=== PATIENT | male | born 1975 | race Caucasian/White ===

== ENCOUNTER 2018-10-19 20:23 | Emergency (ER) | payer BC ==
[~2018-10-19] VITALS: Ht 177.8 cm; Wt 70.3 kg
--- OUTSIDE RECORDS SUMMARY | 2018-10-19 20:25 | XMS REPORT ---
Author Author [facility] Address Unknown Phone Unavailable Care Team Providers Care Interventional Sale Consultant Name Role Phone Unavailable Unavailable Payers Payer Name Policy Type Policy Number Effective Date Expiration Date Problems This patient has no known problems. Allergies, Adverse Reactions, Alerts Allergy Name Allergy Type Status Severity Reaction(s) Onset Date Inactive Date Treating Clinician Comments No Known Allergies DA Active U 2013-09-03 00:00:00 Medications This patient has no known medications. Results Test Description Test Time Test Comments Text Results Atomic Results Result Comments COMPREHENSIVE METABOLIC PANEL 2018-07-20 21:18:00 SODIUM (test code=NA) 139 mmol/L 136-145 POTASSIUM (test code=K) 3.6 mmol/L 3.5-5.1 CHLORIDE (test code=CL) 101.0 mmol/L 98-107 CARBON DIOXIDE (test code=CO2) 32.0 mmol/L 21-32 ANION GAP (test code=GAP) 9.6 10-20 GLUCOSE (test code=GLU) 146 mg/dL 74-106 BLOOD UREA NITROGEN (test code=BUN) 6 mg/dL 7-18 GLOMERULAR FILTRATION RATE (test code=GFR) > 60 mL/min >=60 Estimated GFR by using Modified MDRD formula.Chronic kidney disease is defined as either kidney damageor GFR <60 mL/min/1.73 m2 for >3 months. CREATININE (test code=CREAT) 1.00 mg/dL 0.7-1.3 BUN/CREATININE RATIO (test code=BUN/CREA) 6.0 10-20 TOTAL PROTEIN (test code=PROT) 7.6 gram/dL 6.4-8.2 ALBUMIN (test code=ALB) 4.4 g/dL 3.4-5.0 GLOBULIN (test code=GLOB) 3.2 gram/dL 2.7-4.2 ALBUMIN/GLOBULIN RATIO (test code=A/G) 1.4 0.75-1.50 CALCIUM (test code=CA) 9.0 mg/dL 8.5-10.1 BILIRUBIN TOTAL (test code=BILT) 0.70 mg/dL 0.0-1.0 SGOT/AST (test code=AST) 16 IUnit/L 15-37 SGPT/ALT (test code=ALT) 41 IUnit/L 12-78 ALKALINE PHOSPHATASE TOTAL (test code=ALKP) 74 IUnit/L 45-117 Note change in reference range due to change in reagent. [id number] 21:18:00* Test Item Value Reference Range Comments LIPASE (test code=LIP) 52 U/L 73.0-393.0 COMPREHENSIVE METABOLIC [id number] 21:03:00* Test Item Value Reference Range Comments SODIUM (test code=NA) 139 mmol/L 136-145 POTASSIUM (test code=K) 3.6 mmol/L 3.5-5.1 CHLORIDE (test code=CL) 101.0 mmol/L 98-107 CARBON DIOXIDE (test code=CO2) mmol/L 21-32 ANION GAP (test code=GAP) 10-20 GLUCOSE (test code=GLU) mg/dL 74-106 BLOOD UREA NITROGEN (test code=BUN) mg/dL 7-18 GLOMERULAR FILTRATION RATE (test code=GFR) mL/min >=60 CREATININE (test code=CREAT) mg/dL 0.7-1.3 BUN/CREATININE RATIO (test code=BUN/CREA) 10-20 TOTAL PROTEIN (test code=PROT) gram/dL 6.4-8.2 ALBUMIN (test code=ALB) g/dL 3.4-5.0 GLOBULIN (test code=GLOB) gram/dL 2.7-4.2 ALBUMIN/GLOBULIN RATIO (test code=A/G) 0.75-1.50 CALCIUM (test code=CA) mg/dL 8.5-10.1 BILIRUBIN TOTAL (test code=BILT) mg/dL 0.0-1.0 SGOT/AST (test code=AST) IUnit/L 15-37 SGPT/ALT (test code=ALT) IUnit/L 12-78 ALKALINE PHOSPHATASE TOTAL (test code=ALKP) IUnit/L 45-117 [id number] 21:03:00* Test Item Value Reference Range Comments LIPASE (test code=LIP) U/L 73.0-393.0 URINALYSIS [id number] 21:02:00* Test Item Value Reference Range Comments UA COLOR (test code=COLU) COLORLESS YELLOW UA APPEARANCE (test code=APPU) CLEAR CLEAR UA GLUCOSE DIPSTICK (test code=DGLUU) NEGATIVE mg/dL NEGATIVE UA BILIRUBIN DIPSTICK (test code=BILU) NEGATIVE mg/dL NEGATIVE UA KETONE DIPSTICK (test code=KETU) NEGATIVE mg/dL NEGATIVE UA SPECIFIC GRAVITY (test code=SGU) UNDER 1.001-1.035 UA BLOOD DIPSTICK (test code=GABRIEL) Negative mg/dL NEGATIVE UA PH DIPSTICK (test code=PARMJIT) 5.5 5.0-8.0 UA PROTEIN DIPSTICK (test code=PROU) NEGATIVE mg/dL NEGATIVE UA UROBILINIOGEN DIPSTICK (test code=URO) Normal mg/dL NEGATIVE UA NITRITE DIPSTICK (test code=KATHRIN) NEGATIVE NEGATIVE UA LEUKOCYTE ESTERASE W REFLEX (test code=LEUUR) NEGATIVE Albert/uL NEGATIVE UA WBC (test code=WBCU) 0-5 per HPF 0-5 UA RBC (test code=RBCU) 0-2 #/HPF 0-5 UA EPITHELIAL CELLS (test code=EPIU) Rare (0-1/hpf) per HPF FEW UA BACTERIA (test code=BACU) NONE SEEN #/HPF NONE Urine Source? Clean CatchCBC W/AUTO [id number] 20:51:00* Test Item Value Reference Range Comments WHITE BLOOD CELL (test code=WBC) K/mm3 4.5-12.5 RED BLOOD CELL (test code=RBC) mill/mm3 4.0-5.8 HEMOGLOBIN (test code=HGB) 15.7 gram/dL 13.0-17.5 HEMATOCRIT (test code=HCT) 47.8 % 42.0-52.0 MEAN CELL VOLUME (test code=MCV) fL 80-98 MEAN CELL HGB (test code=MCH) picogram 27.0-33.0 MEAN CELL HGB CONCETRATION (test code=MCHC) gram/dL 33.0-36.0 RED CELL DISTRIBUTION WIDTH (test code=RDW) % 11.6-16.2 RED CELL DISTRIBUTION WIDTH SD (test code=RDW-SD) fL 37.0-51.0 PLATELET COUNT (test code=PLT) K/mm3 150-450 MEAN PLATELET VOLUME (test code=MPV) fL 6.7-11.0 NEUTROPHIL % (test code=NT%) % 39.0-69.0 IMMATURE GRANULOCYTE % (test code=IG%) % 0.0-5.0 LYMPHOCYTE % (test code=LY%) % 25.0-55.0 MONOCYTE % (test code=MO%) % 0.0-10.0 EOSINOPHIL % (test code=EO%) % 0.0-5.0 BASOPHIL % (test code=BA%) % 0.0-1.0 NEUTROPHIL # (test code=NT#) K/mm3 1.8-7.7 LYMPHOCYTE # (test code=LY#) K/mm3 1.0-5.0 MONOCYTE # (test code=MO#) K/mm3 0-0.8 EOSINOPHIL # (test code=EO#) K/mm3 0.0-0.5 BASOPHIL # (test code=BA#) K/mm3 0.0-0.2 CBC W/AUTO [id number] 20:51:00* Test Item Value Reference Range Comments WHITE BLOOD CELL (test code=WBC) 8.0 K/mm3 4.5-12.5 RED BLOOD CELL (test code=RBC) 5.55 mill/mm3 4.0-5.8 HEMOGLOBIN (test code=HGB) 15.7 gram/dL 13.0-17.5 HEMATOCRIT (test code=HCT) 47.8 % 42.0-52.0 MEAN CELL VOLUME (test code=MCV) 86.1 fL 80-98 MEAN CELL HGB (test code=MCH) 28.3 picogram 27.0-33.0 MEAN CELL HGB CONCETRATION (test code=MCHC) 32.8 gram/dL 33.0-36.0 RED CELL DISTRIBUTION WIDTH (test code=RDW) 12.1 % 11.6-16.2 RED CELL DISTRIBUTION WIDTH SD (test code=RDW-SD) 38.2 fL 37.0-51.0 PLATELET COUNT (test code=PLT) 277 K/mm3 150-450 MEAN PLATELET VOLUME (test code=MPV) 10.4 fL 6.7-11.0 NEUTROPHIL % (test code=NT%) 60.6 % 39.0-69.0 IMMATURE GRANULOCYTE % (test code=IG%) 0.4 % 0.0-5.0 LYMPHOCYTE % (test code=LY%) 28.7 % 25.0-55.0 MONOCYTE % (test code=MO%) 7.9 % 0.0-10.0 EOSINOPHIL % (test code=EO%) 2.0 % 0.0-5.0 BASOPHIL % (test code=BA%) 0.4 % 0.0-1.0 NUCLEATED RBC % (test code=NRBC%) 0.0 % 0-0 NEUTROPHIL # (test code=NT#) 4.85 K/mm3 1.8-7.7 IMMATURE GRANULOCYTE # (test code=IG#) 0.03 x10 3/uL 0-0.03 LYMPHOCYTE # (test code=LY#) 2.29 K/mm3 1.0-5.0 MONOCYTE # (test code=MO#) 0.63 K/mm3 0-0.8 EOSINOPHIL # (test code=EO#) 0.16 K/mm3 0.0-0.5 BASOPHIL # (test code=BA#) 0.03 K/mm3 0.0-0.2 NUCLEATED RBC # (test code=NRBC#) 0.00 K/mm3 0.0-0.1 VENOUS BLOOD [id number] 20:45:00* Test Item Value Reference Range Comments VENOUS BLOOD GAS PH (test code=PHV) 7.39 7.30-7.40 VENOUS BLOOD GAS PCO2 (test code=PCO2V) 44.7 mm Hg 39.0-51.0 VENOUS BLOOD GAS PO2 (test code=PO2V) < 44.2 mm Hg 30.0-50.0 VBG HCO3 (test code=HCO3V) 26.1 mmol/L 17.0-30.0 VBG BASE EXCESS (test code=GUERO) 0.7 mmol/L -5.0-5.0 VENOUS BLOOD GAS O2 SAT. (test code=O2SATV) 41 % 94-98 VENOUS BLOOD GAS FIO2 (test code=FIO2V) 21.0 PT. HGB (test code=PHGBVBG) 16.9 gram/dL 13.0-17.5 VENOUS BLOOD GAS SITE (test code=SITEV) RR HEMATOCRIT (test code=HCT/VBG) 50 % 42-52 HGB O2 SAT (test code=HBOSAT) 40.7 % 94.00-98.00 CARBOXYHEMOGLOBIN (test code=HOHGBT) 1.1 %totalHg 0.5-1.5 METHEMOGLOBIN (test code=METHGB) 0.5 % 0.0-1.50 ARTERIAL BLOOD [id number] 20:44:00* Test Item Value Reference Range Comments ARTERIAL BLOOD GAS PH (test code=PHA) 7.39 7.35-7.45 ARTERIAL BLOOD GAS PCO2 (test code=PCO2A) 49.6 mm Hg 35-45 ARTERIAL BLOOD GAS PO2 (test code=PO2A) < 44.2 mmHg 80-100 Results called to and read back by nursesin 20:43 - 07/20/2018; by olive BICARBONATE TOTAL HCO3 (test code=HCO3) 29.4 mmol/L 23.0-27.0 BASE EXCESS (test code=SAKSHI) 3.2 mmol/L -3.0-5.0 ABG O2 SATURATION (test code=SATA) 37.2 % 90.0-98.0 ABG TYPE (test code=TYPEA) Arterial FIO2 (test code=FIO2A) 21.0 ABG SITE (test code=SITEA) Rt RADIAL ARTERY MODIFIED ALLENS (test code=MODALL) Yes CHECK PERFORMED HEMATOCRIT (test code=HCT/ABG) 50 % 42-52 TOTAL HGB (test code=THB) 16.9 gram/dL 13.0-17.5 HGB O2 SAT (test code=HBOSAT) 36.7 % 94.00-98.00 CARBOXYHEMOGLOBIN (test code=HOHGBT) 0.9 %totalHg 0.5-1.5 METHEMOGLOBIN (test code=METHGB) 0.4 % 0.0-1.50
--- OUTSIDE RECORDS SUMMARY | 2018-10-19 20:25 | XMS REPORT | Encounter Summary ---
Author Organization Unknown Address [address] [place] [address] Phone [phone] Care Team Providers Care Tub Chucker Name Role Phone Dr. Israel Liu 3 [phone] [facility] 111 [phone] Reason for Visit Mixed hyperlipidemia; Type II diabetes mellitus uncontrolled; Essential hypertension; cough Instructions 1. Essential hypertension lisinopril 5 mg tablet 2. Mixed hyperlipidemia atorvastatin 40 mg tablet lipid panel, serum CMP, serum or plasma 3. Type II diabetes mellitus uncontrolled type 2 diabetes: care instructions Farxiga 5 mg tablet metformin 1,000 mg tablet HbA1c (hemoglobin A1c), blood microalbumin:creatinine ratio, urine diabetic ophthalmology referral 4. Upper respiratory infection Cheratussin AC 10 mg-100 mg/5 mL oral liquid Zithromax Z-Kevyn 250 mg tablet Discussion Note: None recorded. Plan of Care Reminders Provider Appointments Est Patient 12/05/2018 1:30PM Israel Casas MD Lab Lipid Panel, Serum 09/04/2018 [facility] CMP, Serum or Plasma 09/04/2018 [facility] HbA1C (Hemoglobin a1C), Blood 09/04/2018 [facility] Microalbumin:creatinine Ratio, Urine 09/04/2018 [facility] Referral Diabetic Ophthalmology Referral 09/04/2018 Procedures None recorded. Surgeries None recorded. Imaging None recorded. Medications Name Start Date atorvastatin 40 mg tablet Take 1 tablet every day by oral route in the evening for 90 days. Cheratussin AC 10 mg-100 mg/5 mL oral liquid Take 10 mL every 6-8 hours by oral route as needed. Co Q-10 200 mg capsule QD Farxiga 5 mg tablet Take 1 tablet every day by oral route for 90 days. lisinopril 5 mg tablet Take 1 tablet every day by oral route for 90 days. metformin 1,000 mg tablet Take 1 tablet twice a day by oral route for 90 days. True Metrix Glucose Test Strip Take 1 strip every day by miscell. route. Ultra Thin Lancets 30 gauge Take 1 each every day by miscell. route for 30 days. Zithromax Z-Kevyn 250 mg tablet TAKE 2 TABLETS (500 MG) BY ORAL ROUTE ONCE DAILY FOR 1 DAY THEN 1 TABLET (250 MG) BY ORAL ROUTE ONCE DAILY FOR 4 DAYS Medications Administered None recorded. Vitals Height Weight BMI Blood Pressure 5 ft 10 in 161 lbs 23.1 kg/m2 124/80 mm[Hg] Lab Results None recorded. Allergies Code Code System Name Reaction Severity Status Onset NKDA Problems Name Status Onset Date Source Type II Diabetes Mellitus Uncontrolled Active 07/09/2016 Mixed Hyperlipidemia Active 07/09/2016 Chews Tobacco Active 07/09/2016 Essential Hypertension Active Procedures None recorded. Vaccine List Vaccine Type pneumococcal polysaccharide PPV23 07/09/20160.5 mL Social History Smoking Status Never Smoker Past Encounters 09/04/2018 Essential Hypertension; Mixed Hyperlipidemia; Type II Diabetes Mellitus Uncontrolled; Upper Respiratory Infection Israel Casas MD: [id number] [place] [address], Ph. History of Present Illness Note:F/u on chronic conditions. Needs refills. Compliant with meds. Non compliant with diet or exercise. Not checking glucose readings or BPs at home. No side effects with meds. <div>Productive cough and itchy throat since 2 weeks ago. Denies runny nose, nasal congestion, fever, sob, wheezing or chest pain.< /div> Review of Systems:ROS as noted in the HPI Review of Systems None recorded. Physical Exam General Adult Exam (male) Reported By: Patient Constitutional: General Appearance: healthy-appearing. Level of Distress: NAD Psychiatric: Insight: good judgement. Mental Status: active and alert, normal mood, normal affect. Orientation: to time, to place, to person. Memory: recent memory normal, remote memory normal Eyes: Lids and Conjunctivae: non-injected, no discharge. EOM: EOMI ENMT: Ears: TMs clear. Nose: no sinus tenderness, nasal discharge, post nasal drip. Lips, Teeth, and Gums: no mouth or lip ulcers. Oropharynx: moist mucous membranes, no exudates, tonsils enlarged, erythema Neck: Neck: supple, trachea midline. Lymph Nodes: cervical LAD. Thyroid: no enlargement, non-tender Lungs: Auscultation: breath sounds normal Cardiovascular: Heart Auscultation: RRR, normal S1, normal S2, no murmurs. Neck vessels: no carotid bruits Musculoskeletal:: Motor Strength and Tone: normal, normal tone. Joints, Bones, and Muscles: normal movement of all extremities. Extremities: no edema Neurologic: Gait and Station: normal gait Skin: Inspection and palpation: no rash, no lesions
--- OUTSIDE RECORDS SUMMARY | 2018-10-19 20:25 | XMS REPORT | Encounter Summary ---
Author Organization Unknown Address [address] [place] [id number] Phone [phone] Care Team Providers Care Rag Sorter And Cutter Name Role Phone Dr. Israel Liu 3 [phone] [facility] 111 [phone] Reason for Visit Mixed hyperlipidemia; Type II diabetes mellitus uncontrolled; Essential hypertension; diabetic foot exam; sore throat Instructions 1. Mixed hyperlipidemia atorvastatin 40 mg tablet CMP, serum or plasma lipid panel, serum 2. Type II diabetes mellitus uncontrolled type 2 diabetes: care instructions metformin 1,000 mg tablet Farxiga 5 mg tablet diabetic ophthalmology referral HbA1c (hemoglobin A1c), blood 3. Essential hypertension lisinopril 5 mg tablet 4. Influenza vaccination declined 5. Immunization refused 6. Chews tobacco stopping smokeless tobacco use: care instructions 7. Acute pharyngitis Augmentin 875 mg-125 mg tablet 8. Body mass index 20-24 - normal Discussion Note: None recorded. Plan of Care Reminders Provider Appointments Return to Office on or around 08/21/2018 Israel Casas MD Lab CMP, Serum or Plasma 05/22/2018 [facility] Lipid Panel, Serum 05/22/2018 [facility] HbA1C (Hemoglobin a1C), Blood 05/22/2018 [facility] Referral Diabetic Ophthalmology Referral 05/22/2018 Procedures None recorded. Surgeries None recorded. Imaging None recorded. Medications Name Start Date atorvastatin 40 mg tablet Take 1 tablet every day by oral route in the evening. Augmentin 875 mg-125 mg tablet Take 1 tablet every 12 hours by oral route as directed for 10 days. Co Q-10 200 mg capsule QD Farxiga 5 mg tablet Take 1 tablet every day by oral route. lisinopril 5 mg tablet Take 1 tablet every day by oral route. metformin 1,000 mg tablet Take 1 tablet twice a day by oral route. True Metrix Glucose Test Strip Take 1 strip every day by miscell. route. Ultra Thin Lancets 30 gauge Take 1 each every day by miscell. route for 30 days. Medications Administered None recorded. Vitals Height Weight BMI Blood Pressure 5 ft 10 in 165 lbs 23.7 kg/m2 120/80 mm[Hg] Lab Results None recorded. Allergies Code Code System Name Reaction Severity Status Onset NKDA Problems Name Status Onset Date Source Type II Diabetes Mellitus Uncontrolled Active 07/09/2016 Mixed Hyperlipidemia Active 07/09/2016 Chews Tobacco Active 07/09/2016 Essential Hypertension Active Procedures None recorded. Vaccine List Vaccine Type pneumococcal polysaccharide PPV23 07/09/20160.5 mL Social History Smoking Status Never Smoker Past Encounters 05/22/2018 Mixed Hyperlipidemia; Type II Diabetes Mellitus Uncontrolled; Essential Hypertension; Influenza Vaccination Declined; Immunization Refused; Chews Tobacco; Acute Pharyngitis; Body Mass Index 20-24 - Normal Israel Casas MD: [id number] [place] [address], Ph. History of Present Illness Note:F/u on chronic conditions. Needs refills. Non compliant with meds (ran out 2 months ago). Compliant with diet and exercise. Glucose readings at home 100s while taking meds. Not checking BPs at home. No side effects with meds. <div> Complaining of sore throat since 2 weeks ago. Concomitantly, dry cough. Denies n jordin congestion, fever, ear pain, sob, chest pain or wheezing.</div> Review of Systems:ROS as noted in the [...] Ears: TMs clear. Nose: no sinus tenderness, nares non-patent, nasal discharge. Lips, Teeth, and Gums: no mouth or lip ulcers. Oropharynx: moist mucous membranes, no exudates, tonsils enlarged, erythema Neck: Neck: supple, trachea midline. Lymph Nodes: cervical LAD. Thyroid: no enlargement, non-tender Lungs: Auscultation: breath sounds normal Cardiovascular: Heart Auscultation: RRR, normal S1, normal S2, no murmurs. Neck vessels: no carotid bruits. Pulses including femoral / pedal: normal throughout Abdomen: Inspection and Palpation: soft, non-distended, no tenderness, no guarding Musculoskeletal:: Motor Strength and Tone: normal, normal tone. Joints, Bones, and Muscles: normal movement of all extremities, no contractures, no bony abnormalities, no malalignment, no tenderness. Extremities: no edema Neurologic: Gait and Station: normal gait. Cranial Nerves: grossly intact. Coordination and Cerebellum: no tremor Skin: Inspection and palpation: no rash, no lesions
[2018-10-19 21:41] LABS: BASOPHILS % 0.4 % (0.0-1.0); EOSINOPHILS # (AUTO) 0.2 (0.0-0.4); EOSINOPHILS % 2.7 % (0.0-6.0); HEMATOCRIT 43.9 % (38.2-49.6); HEMOGLOBIN 15.2 g/dL (14.0-18.0); LYMPHOCYTES # (AUTO) 2.2 (1.0-3.2); MEAN CORPUSCULAR HEMOGLOBIN 29.8 pg (28-32); MEAN CORPUSCULAR HGB CONC 34.6 g/dL (31-35); MEAN CORPUSCULAR VOLUME 86.1 fL (81-99); MONOCYTES # (AUTO) 0.6 (0.2-0.8); MONOCYTES % 7.8 % (4.4-11.3); NEUTROPHILS # (AUTO) 4.6 (2.1-6.9); NEUTROPHILS % 59.8 % (38.7-80.0); PLATELET COUNT 247 x10e3/uL (140-360); RED CELL DISTRIBUTION WIDTH 12.3 % (11.7-14.4)
[2018-10-19 22:02] LABS: ALANINE AMINOTRANSFERASE 28 IU/L (0-55); ALBUMIN 4.2 g/dL (3.5-5.0); ALBUMIN/GLOBULIN RATIO 1.5 (0.8-2.0); ALKALINE PHOSPHATASE 70 IU/L (40-150); ANION GAP 17.4 mmol/L (8-16); BLOOD UREA NITROGEN 9 mg/dL (7-26); BUN/CREATININE RATIO 12 (6-25); CALCIUM 9.3 mg/dL (8.4-10.2); CARBON DIOXIDE 24 mmol/L (22-29); CHLORIDE 103 mmol/L (98-107); CREATINE KINASE 52 IU/L (30-200); CREATININE, SERUM 0.76 mg/dL (0.72-1.25); EST GLOMERULAR FILTRATION RATE > 60 ML/MIN (60-); GLUCOSE 150 mg/dL (74-118); POTASSIUM 3.4 mmol/L (3.5-5.1); SODIUM 141 mmol/L (136-145)
--- NOTE | 2018-10-19 22:14 | Diagnostic Imaging Report ---
EXAMINATION: CHEST SINGLE (PORTABLE) INDICATION: Chest pain COMPARISON: None FINDINGS: AP view TUBES and LINES: None. LUNGS: Lungs are well inflated. Lungs are clear. There is no evidence of pneumonia or pulmonary edema. PLEURA: No pleural effusion or pneumothorax. HEART AND MEDIASTINUM: The cardiomediastinal silhouette is unremarkable. BONES AND SOFT TISSUES: No acute osseous lesion. Soft tissues are unremarkable. UPPER ABDOMEN: No free air under the diaphragm. IMPRESSION: No acute thoracic abnormality. Signed by: Kemar Chowdhury DO on 10/19/2018 10:11 PM
[2018-10-19 22:59] VITALS: BP 119/84
== END 2018-10-19 23:07 | disposition home or self-care (01) ==
LOC: ER 20:23
DX: R07.9 Chest pain, unspecified (principal); R00.2 Palpitations; I10 Essential (primary) hypertension; E11.9 Type 2 diabetes mellitus without complications; E78.5 Hyperlipidemia, unspecified
CPT/HCPCS: 36415; 71045; 80053; 82550; 82553; 84484; 85025; 85379; 93005; 99284